=== PATIENT | male | born 1975 | race Caucasian/White ===

== ENCOUNTER 2017-04-20 20:04 | Emergency (ER) | payer BC ==
--- NOTE | 2017-04-20 20:41 | ED ---
General Adult HPI - General Source: patient, RN notes reviewed Mode of arrival: wheelchair Limitations: no limitations <Vin Cuadra - Last Filed: 04/20/17 20:38> <Castillo Garcia - Last Filed: 04/20/17 23:51> - General Chief complaint: Chest Pain Stated complaint: Chest Pain Time Seen by Provider: 04/20/17 20:05 - History of Present Illness Initial comments: This is a 42-year-old male who presents emergency Department complaining of shortness of breath. Patient states the shortness of breath has been ongoing for a few weeks now but he states is not that bad. 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 Patient denies any chest pain or palpitations. Patient's heart rate is currently 125 minutes as I talked to him but he does not have a history of any fast heart rate that he knows of. Patient denies any recent fever or chills he states he's had a cough for as long she's been on lisinopril. Patient denies any recent trips or travel. Patient denies any calf tenderness or leg swelling. Patient denies any headache. Patient denies any dizziness. Patient states he was lightheaded just prior to falling down but is no longer lightheaded. (Vin Cuadra) - Related Data Allergies Allergy/AdvReac Type Severity Reaction Status Date / Time lisinopril AdvReac Cough Verified 04/20/17 21:07 Review of Systems ROS Other: All systems not noted in ROS Statement are negative. <Vin Cuadra - Last Filed: 04/20/17 20:38> ROS Other: All systems not noted in ROS Statement are negative. <Castillo Garcia - Last Filed: 04/20/17 23:51> ROS Statement: Those systems with pertinent positive or pertinent negative responses have been documented in the HPI. Past Medical History Past Medical History: Hypertension History of Any Multi-Drug Resistant Organisms: None Reported Past Surgical History: Appendectomy, Cholecystectomy Past Psychological History: No Psychological Hx Reported Smoking Status: Never smoker Past Alcohol Use History: None Reported Past Drug Use History: None Reported <Vin Cuadra - Last Filed: 04/20/17 20:38> General Exam Limitations: no limitations <Vin Cuadra - Last Filed: 04/20/17 20:38> <Castillo Garcia - Last Filed: 04/20/17 23:51> - General Exam Comments Initial Comments: GENERAL: Patient is well-developed and well-nourished. Patient is nontoxic and well- hydrated and is in no acute distress. ENT: Neck is soft and supple. No significant lymphadenopathy is noted. Oropharynx is clear. Moist mucous membranes. Neck has full range of motion without eliciting any pain. EYES: The sclera were anicteric and conjunctiva were pink and moist. Extraocular movements were intact and pupils were equal round and reactive to light. Eyelids were unremarkable. PULMONARY: Unlabored respirations. Good breath sounds bilaterally. No audible rales rhonchi or wheezing was noted. CARDIOVASCULAR: Patient's heart is tachycardic at 120 beats a minute ABDOMEN: Soft and nontender with normal bowel sounds. No palpable organomegaly was noted. There is no palpable pulsatile mass. SKIN: Skin is clear with no lesions or rashes and otherwise unremarkable. NEUROLOGIC: Patient is alert and oriented x3. Cranial nerves II through XII are grossly intact. Motor and sensory are also intact. Normal speech, volume and content. Symmetrical smile. MUSCULOSKELETAL: Normal extremities with adequate strength and full range of motion. No lower extremity swelling or edema. No calf tenderness. LYMPHATICS: No significant lymphadenopathy is noted PSYCHIATRIC: Normal psychiatric evaluation. Normal interpersonal interactions appears functionally intact in deals appropriately with others. No signs of depression. No signs of anxiety. (Vin Cuadra) EKG Findings - EKG Comments: EKG Findings:: EKG shows sinus tachycardia with a ventricular rate 102, IN of 194, QRS duration 68, QTC 404, no ST segment elevation or depression <Castillo Garcia - Last Filed: 04/20/17 23:51> Medical Decision Making <Vin Cuadra - Last Filed: 04/20/17 20:38> - Lab Data Result diagrams: 04/20/17 20:27 04/20/17 20:27 <Castillo Garcia - Last Filed: 04/20/17 23:51> - Medical Decision Making EKG shows sinus tachycardia at 102 bpm IN interval 194 Shalonda is 60 QT interval 310 QTC is 404. Patient's EKG shows no ST segment elevation or depression or T wave abnormalities are noted (Vin Cuadra) I reevaluate this patient after sign out at approximately 10 PM. He has no complaints at the time my evaluation. He is tachycardic around 110. IV fluids are ordered. Chest x-ray shows left hilar fullness, CT angiography is recommended. This is obtained. Negative for PE or any left hilar mass. Levaquin studies are reviewed and are unremarkable. Patient denies nausea vomiting or diarrhea. He states he did drink water today. Patient's heart rate significantly improves with IV hydration. Repeat in the 80s. Blood pressure remained stable. Patient is offered observation for telemetry and reevaluation the morning. He declines. I believe his symptoms are likely related to dehydration. He will continue to rehydrate at home. Patient will follow-up with his primary care physician. (Castillo Garcia) - Lab Data Lab Results 04/20/17 04/20/17 04/20/17 Range/Units 20:27 20:27 20:27 WBC 11.9 H (3.8-10.6) k/uL RBC 5.61 (4.30-5.90) m/uL Hgb 17.0 (13.0-17.5) gm/dL Hct 49.5 (39.0-53.0) % MCV 88.3 (80.0-100.0) fL MCH 30.3 (25.0-35.0) pg MCHC 34.3 (31.0-37.0) g/dL RDW 12.2 (11.5-15.5) % Plt Count 291 (150-450) k/uL Neutrophils % 83 % Lymphocytes % 9 % Monocytes % 5 % Eosinophils % 0 % Basophils % 0 % Neutrophils # 9.9 H (1.3-7.7) k/uL Lymphocytes # 1.1 (1.0-4.8) k/uL Monocytes # 0.6 (0-1.0) k/uL Eosinophils # 0.0 (0-0.7) k/uL Basophils # 0.0 (0-0.2) k/uL PT (9.0-12.0) sec INR (<1.2) APTT (22.0-30.0) sec D-Dimer (<0.60) mg/L FEU Sodium 138 (137-145) mmol/L Potassium 4.5 (3.5-5.1) mmol/L Chloride 98 (98-107) mmol/L Carbon Dioxide 27 (22-30) mmol/L Anion Gap 13 mmol/L BUN 17 (9-20) mg/dL Creatinine 1.20 (0.66-1.25) mg/dL Est GFR (MDRD) Af Amer >60 (>60 ml/min/1.73 sqM) Est GFR (MDRD) Non-Af >60 (>60 ml/min/1.73 sqM) Glucose 118 H (74-99) mg/dL Calcium 9.9 (8.4-10.2) mg/dL Magnesium 2.2 (1.6-2.3) mg/dL Total Bilirubin 0.7 (0.2-1.3) mg/dL AST 36 (17-59) U/L ALT 62 (21-72) U/L Alkaline Phosphatase 79 (38-126) U/L Total Creatine Kinase 148 (55-170) U/L CK-MB (CK-2) 1.5 (0.0-2.4) ng/mL CK-MB (CK-2) Rel Index 1.0 Troponin I <0.012 (0.000-0.034) ng/mL NT-Pro-B Natriuret Pep pg/mL Total Protein 7.6 (6.3-8.2) g/dL Albumin 4.8 (3.5-5.0) g/dL TSH 0.951 (0.465-4.680) mIU/L Free T4 1.12 (0.78-2.19) ng/dL Urine Opiates Screen (NotDetected) Ur Oxycodone Screen (NotDetected) Urine Methadone Screen (NotDetected) Ur Propoxyphene Screen (NotDetected) Ur Barbiturates Screen (NotDetected) U Tricyclic Antidepress (NotDetected) Ur Phencyclidine Scrn (NotDetected) Ur Amphetamines Screen (NotDetected) U Methamphetamines Scrn (NotDetected) U Benzodiazepines Scrn (NotDetected) Urine Cocaine Screen (NotDetected) U Marijuana (THC) Screen (NotDetected) 04/20/17 04/20/17 04/20/17 Range/Units 20:27 20:27 20:54 WBC (3.8-10.6) k/uL RBC (4.30-5.90) m/uL Hgb (13.0-17.5) gm/dL Hct (39.0-53.0) % MCV (80.0-100.0) fL MCH (25.0-35.0) pg MCHC (31.0-37.0) g/dL RDW (11.5-15.5) % Plt Count (150-450) k/uL Neutrophils % % Lymphocytes % % Monocytes % % Eosinophils % % Basophils % % Neutrophils # (1.3-7.7) k/uL Lymphocytes # (1.0-4.8) k/uL Monocytes # (0-1.0) k/uL Eosinophils # (0-0.7) k/uL Basophils # (0-0.2) k/uL PT 10.8 (9.0-12.0) sec INR 1.1 (<1.2) APTT 22.9 (22.0-30.0) sec D-Dimer 0.28 (<0.60) mg/L FEU Sodium (137-145) mmol/L Potassium (3.5-5.1) mmol/L Chloride (98-107) mmol/L Carbon Dioxide (22-30) mmol/L Anion Gap mmol/L BUN (9-20) mg/dL Creatinine (0.66-1.25) mg/dL Est GFR (MDRD) Af Amer (>60 ml/min/1.73 sqM) Est GFR (MDRD) Non-Af (>60 ml/min/1.73 sqM) Glucose (74-99) mg/dL Calcium (8.4-10.2) mg/dL Magnesium (1.6-2.3) mg/dL Total Bilirubin (0.2-1.3) mg/dL AST (17-59) U/L ALT (21-72) U/L Alkaline Phosphatase (38-126) U/L Total Creatine Kinase (55-170) U/L CK-MB (CK-2) (0.0-2.4) ng/mL CK-MB (CK-2) Rel Index Troponin I (0.000-0.034) ng/mL NT-Pro-B Natriuret Pep <11 pg/mL Total Protein (6.3-8.2) g/dL Albumin (3.5-5.0) g/dL TSH (0.465-4.680) mIU/L Free T4 (0.78-2.19) ng/dL Urine Opiates Screen Not Detected (NotDetected) Ur Oxycodone Screen Not Detected (NotDetected) Urine Methadone Screen Not Detected (NotDetected) Ur Propoxyphene Screen Not Detected (NotDetected) Ur Barbiturates Screen Not Detected (NotDetected) U Tricyclic Antidepress Not Detected (NotDetected) Ur Phencyclidine Scrn Not Detected (NotDetected) Ur Amphetamines Screen Not Detected (NotDetected) U Methamphetamines Scrn Not Detected (NotDetected) U Benzodiazepines Scrn Not Detected (NotDetected) Urine Cocaine Screen Not Detected (NotDetected) U Marijuana (THC) Screen Not Detected (NotDetected) Disposition <Vin Cuadra - Last Filed: 04/20/17 20:38> Time of Disposition: 23:51 <Castillo Garcia - Last Filed: 04/20/17 23:51> Clinical Impression: Dehydration, Syncope Disposition: HOME SELF-CARE Condition: Good Instructions: Dehydration (ED), Syncope (ED) Referrals: Candelario Chapa DO [Primary Care Provider] - 1-2 days
[2017-04-20 20:56] LABS: Basophils % (A) 0 %; CH 31.1; CHCM 35.3; Eosinophils % (A) 0 %; HCT 49.5 % (39.0-53.0); HDW 2.42; Luc # (Auto) 0.22; Luc % (Auto) 2; Lymphocytes # (A) 1.1 k/uL (1.0-4.8); Lymphocytes % (A) 9 %; MCH 30.3 pg (25.0-35.0); MCHC 34.3 g/dL (31.0-37.0); MCV 88.3 fL (80.0-100.0); Mean Platelet Volume 7.7; Monocytes # (A) 0.6 k/uL (0-1.0); Monocytes % (A) 5 %; Neutrophils # (A) 9.9 k/uL (1.3-7.7); Neutrophils % (A) 83 %; RBC 5.61 m/uL (4.30-5.90); RDW 12.2 % (11.5-15.5); WBC 11.9 k/uL (3.8-10.6); WBC (Perox) 12.03
[2017-04-20 21:00] VITALS: RESP 18
[2017-04-20 21:07] LABS: ALT 62 U/L (21-72); AST 36 U/L (17-59); Alkaline Phosphatase 79 U/L (38-126); Anion Gap 13 mmol/L; Blood Urea Nitrogen 17 mg/dL (9-20); Calcium 9.9 mg/dL (8.4-10.2); Carbon Dioxide 27 mmol/L (22-30); Chloride 98 mmol/L (98-107); Glucose 118 mg/dL (74-99); Magnesium 2.2 mg/dL (1.6-2.3); Non-African American GFR(MDRD) >60 (>60 ml/min/1.73 sqM); Potassium 4.5 mmol/L (3.5-5.1); Sodium 138 mmol/L (137-145); Total Bilirubin 0.7 mg/dL (0.2-1.3); Total Protein 7.6 g/dL (6.3-8.2)
[2017-04-20 21:19] LABS: Creatine Kinase 148 U/L (55-170)
[2017-04-20 21:32] LABS: Creatine Kinase MB 1.5 ng/mL (0.0-2.4); Troponin I <0.012 ng/mL (0.000-0.034)
[2017-04-20] MEDS ORDERED: SODIUM CHLORIDE 0.9% 1,000 ML IV ONE (21:36)
--- NOTE | 2017-04-20 21:43 | XR ---
EXAMINATION TYPE: XR chest 2V DATE OF EXAM: 04/20/2017 COMPARISON: NONE HISTORY: Dyspnea TECHNIQUE: Frontal and lateral views of the chest are obtained. FINDINGS: There is prominence of the left hilum. This could represent summation shadows of overlying structures, but would suggest chest CTA characterization. Lungs are clear bilaterally. Pleural spaces are negative. Cardiac silhouette is normal. Remainder of the mediastinal silhouette is normal. Bones and soft tissu es are unremarkable. IMPRESSION: 1. CHEST CTA SUGGESTED TO CHARACTERIZE THE LEFT HILAR FULLNESS. 2. No acute pulmonary or pleural process.
[2017-04-20] MEDS ORDERED: RX INFO: IV CONTRAST WAS GIVEN 1 EACH MISC MISCELLANE PRN (21:45)
[2017-04-20] MEDS ORDERED: SODIUM CHLORIDE 0.9% 1,000 ML IV SCH (21:45)
[2017-04-20 21:49] LABS: INR 1.1 (<1.2)
[2017-04-20 21:56] LABS: Partial Thromboplastin Time 22.9 sec (22.0-30.0); Prothrombin Time 10.8 sec (9.0-12.0)
--- NOTE | 2017-04-20 23:11 | CT ---
EXAMINATION TYPE: CT angio chest DATE OF EXAM: 04/20/2017 10:59 PM COMPARISON: NONE HISTORY: Chest tightness and bilateral hand numbness. CT DLP: 580.00 mGycm Automated exposure control for dose reduction was used. CONTRAST: CTA scan of the thorax is performed with IV Contrast, patient injected with 92 mL of Omnipaque 350, p ulmonary embolism protocol. There are 3-D post processed images.. FINDINGS: The lungs are clear of consolidation. There is no evidence of a pulmonary mass. There is no pleural effusion. There is no pericardial effusion. There is coarse interstitial markings at the lung bases. There are no hilar masses. There is no mediastinal adenopathy. Thoracic aorta is intact. I see no filling defects in the pulmonary arteries. The bony thorax is intact. IMPRESSION: NEGATIVE CT ANGIOGRAM OF THE CHEST. NO EVIDENCE OF PULMONARY EMBOLISM.
[2017-04-20 23:28] VITALS: TEMP 99.4
[2017-04-20 23:35] VITALS: BP 152/95; PULSE 89
== END 2017-04-21 00:14 | disposition home or self-care (01) ==
LOC: EC 20:04
DX: E86.0 Dehydration (principal); R55 Syncope and collapse; R00.0 Tachycardia, unspecified; Z88.8 Allergy status to other drugs, medicaments and biological substances; Z79.899 Other long term (current) drug therapy
CPT/HCPCS: 96360 ×2; 99285 ×2; 36415; 93005; 85379; 84439; 83880; 80053; 82550; 82553; 83735; 84443; 84484; 85025; 85610; 85730; 80306; 71020; 71275; Q9967

== ENCOUNTER 2020-11-13 13:16 | Emergency (ER) | payer BC ==
[2020-11-13 13:21] VITALS: BP 133/88; PULSE 88; RESP 18; TEMP 97.6
[2020-11-13] MEDS ORDERED: KETOROLAC 15 MG/ML 1 ML VIAL IVP STA (13:32)
[2020-11-13] MEDS ORDERED: SODIUM CHLORIDE 0.9% 1,000 ML IV STA (13:32)
[2020-11-13] MEDS ORDERED: ONDANSETRON 4 MG/2 ML VIAL IVP STA (13:33)
--- NOTE | 2020-11-13 13:42 | ED ---
General Adult HPI - General Chief complaint: Abdominal Pain Stated complaint: Kidney pain Time Seen by Provider: 11/13/20 13:23 Source: patient Mode of arrival: ambulatory Limitations: no limitations - History of Present Illness Initial comments: Patient is a 45-year-old male with history of hypertension, presenting to the emergency department with complaints of an abnormal computed tomography scan. Patient states over the past week he has been having right flank pain and thought he was having a kidney stone. He states he's had this in the past and the pain feels similar. His pain has been intermittent but does get very severe, today has been ranging from a 7-9/10. His doctor ordered him a computed tomography scan today which she had done at [facility] and the doctor called him back stating there was some sort of mass around his kidney and that he needed to go in to see a urologist. Patient decided to come here into the ER for evaluation. He states the pain has been continuous for about one week. He's had some nausea no vomiting. He denies any fevers but does have some sweats and chills. He admits to history of appendectomy, cholecystectomy, no other abdominal surgeries. He denies any chest pain or shortness of breath. He has no further complaints at this time. Arrival to the ER, his vital signs are stable. - Related Data Home Medications Medication Instructions Recorded Confirmed amLODIPine [Norvasc] 10 mg PO DAILY 04/20/17 11/13/20 hydroCHLOROthiazide [Hydrodiuril] 25 mg PO DAILY 04/20/17 11/13/20 Atorvastatin [Lipitor] 20 mg PO DAILY 11/13/20 11/13/20 Irbesartan [Avapro] 300 mg PO DAILY 11/13/20 11/13/20 Multivitamin [Multivitamins Adult 2 tab PO DAILY 11/13/20 11/13/20 Gummies] Previous Rx's Medication Instructions Recorded Ketorolac [Toradol] 10 mg PO Q8HR #10 tab 11/13/20 Ondansetron Odt [Zofran Odt] 4 mg PO Q8HR PRN #10 tab 11/13/20 Tamsulosin [Flomax] 0.4 mg PO DAILY #7 cap 11/13/20 Allergies Allergy/AdvReac Type Severity Reaction Status Date / Time lisinopril AdvReac Cough Verified 11/13/20 14:09 Review of Systems ROS Statement: Those systems with pertinent positive or pertinent negative responses have been documented in the HPI. ROS Other: All systems not noted in ROS Statement are negative. Past Medical History Past Medical History: Hypertension History of Any Multi-Drug Resistant Organisms: None Reported Past Surgical History: Appendectomy, Cholecystectomy Past Psychological History: No Psychological Hx Reported Smoking Status: Never smoker Past Alcohol Use History: None Reported Past Drug Use History: None Reported General Exam - General Exam Comments Initial Comments: GENERAL: Patient is well-developed and well-nourished. Patient is nontoxic and in mild distress. HEAD: Atraumatic, normocephalic. EYES: Pupils equal round and reactive to light, extraocular movements intact, sclera anicteric, conjunctiva are normal. Eyelids were unremarkable. ENT: TMs normal, nares patent, oropharynx clear without exudates. Moist mucous membranes. NECK: Normal range of motion, supple without lymphadenopathy or JVD. LUNGS: Unlabored respirations. Breath sounds clear to auscultation bilaterally and equal. No wheezes rales or rhonchi. HEART: Regular rate and rhythm without murmurs, rubs or gallops. ABDOMEN: Soft, discomfort with palpation of the right side of the abdomen, positive right flank pain. normoactive bowel sounds. No guarding, no rebound. No masses appreciated. : Deferred MUSCULOSKELETAL: Normal extremities with adequate strength and normal range of motion, no pitting or edema. No clubbing or cyanosis. NEUROLOGICAL: Patient is alert and oriented x 3. Motor and sensory are also intact. Cranial nerves II through XII grossly intact. Symmetrical smile. Normal speech, normal gait. PSYCH: Normal mood, normal affect. SKIN: Warm, Dry, normal turgor, no rashes or lesions noted. Limitations: no limitations Course Vital Signs 11/13/20 13:17 Temperature 97.6 F Pulse Rate 88 Respiratory 18 Rate Blood Pressure 133/88 O2 Sat by Pulse 99 Oximetry Medical Decision Making - Medical Decision Making Patient is a 45-year-old male with history of hypertension, presenting after an abnormal computed tomography scan performed at [facility] today. He's been having right flank pain for 1 week, had an outpatient computed tomography scan done today at [facility]. We did obtain the results of that computed tomography scan which shows mild right-sided obstructive uropathy with distention of the right pelvicalyceal system and proximal right ureter, no visible calcifications either kidney or right ureter. Patient's lab work is unremarkable, normal white count, normal kidney function, urine shows hematuria but no signs of infection. Patient was given fluids and Toradol and reports a scant improvement in his pain. He states his pain is a 2/10. I discussed these findings with the patient. Patient will follow up with urology in the next few days. I will send him home with pain control, Zofran and some Flomax. Recommend increasing his fluid intake. Return parameters were discussed with the patient and he verbalized understanding. Case discussed with Dr. Rodriges. - Lab Data Result diagrams: 11/13/20 13:55 11/13/20 13:55 Lab Results 11/13/20 11/13/20 11/13/20 Range/Units 13:55 13:55 13:55 WBC 12.8 H (3.8-10.6) k/uL RBC 5.41 (4.30-5.90) m/uL Hgb 16.5 (13.0-17.5) gm/dL Hct 46.3 (39.0-53.0) % MCV 85.6 (80.0-100.0) fL MCH 30.5 (25.0-35.0) pg MCHC 35.7 (31.0-37.0) g/dL RDW 12.0 (11.5-15.5) % Plt Count 300 (150-450) k/uL MPV 8.1 Neutrophils % 90 % Lymphocytes % 5 % Monocytes % 3 % Eosinophils % 1 % Basophils % 0 % Neutrophils # 11.5 H (1.3-7.7) k/uL Lymphocytes # 0.6 L (1.0-4.8) k/uL Monocytes # 0.4 (0-1.0) k/uL Eosinophils # 0.1 (0-0.7) k/uL Basophils # 0.0 (0-0.2) k/uL Sodium 135 L (137-145) mmol/L Potassium 4.5 (3.5-5.1) mmol/L Chloride 97 L (98-107) mmol/L Carbon Dioxide 28 (22-30) mmol/L Anion Gap 10 mmol/L BUN 18 (9-20) mg/dL Creatinine 1.06 (0.66-1.25) mg/dL Est GFR (CKD-EPI)AfAm >90 (>60 ml/min/1.73 sqM) Est GFR (CKD-EPI)NonAf 85 (>60 ml/min/1.73 sqM) Glucose 119 H (74-99) mg/dL Plasma Lactic Acid Jesse (0.7-2.0) mmol/L Calcium 9.7 (8.4-10.2) mg/dL Total Bilirubin 0.8 (0.2-1.3) mg/dL AST 33 (17-59) U/L ALT 41 (4-49) U/L Alkaline Phosphatase 82 (38-126) U/L Total Protein 7.6 (6.3-8.2) g/dL Albumin 4.8 (3.5-5.0) g/dL Urine Color Light Yellow Urine Appearance Clear (Clear) Urine pH 7.0 (5.0-8.0) Ur Specific [place] 1.018 (1.001-1.035) Urine Protein Negative (Negative) Urine Glucose (UA) Negative (Negative) Urine Ketones Negative (Negative) Urine Blood Moderate H (Negative) Urine Nitrite Negative (Negative) Urine Bilirubin Negative (Negative) Urine Urobilinogen <2.0 (<2.0) mg/dL Ur Leukocyte Esterase Negative (Negative) Urine RBC 68 H (0-5) /hpf Urine WBC 2 (0-5) /hpf 11/13/20 Range/Units 13:55 WBC (3.8-10.6) k/uL RBC (4.30-5.90) m/uL Hgb (13.0-17.5) gm/dL Hct (39.0-53.0) % MCV (80.0-100.0) fL MCH (25.0-35.0) pg MCHC (31.0-37.0) g/dL RDW (11.5-15.5) % Plt Count (150-450) k/uL MPV Neutrophils % % Lymphocytes % % Monocytes % % Eosinophils % % Basophils % % Neutrophils # (1.3-7.7) k/uL Lymphocytes # (1.0-4.8) k/uL Monocytes # (0-1.0) k/uL Eosinophils # (0-0.7) k/uL Basophils # (0-0.2) k/uL Sodium (137-145) mmol/L Potassium (3.5-5.1) mmol/L Chloride (98-107) mmol/L Carbon Dioxide (22-30) mmol/L Anion Gap mmol/L BUN (9-20) mg/dL Creatinine (0.66-1.25) mg/dL Est GFR (CKD-EPI)AfAm (>60 ml/min/1.73 sqM) Est GFR (CKD-EPI)NonAf (>60 ml/min/1.73 sqM) Glucose (74-99) mg/dL Plasma Lactic Acid Jesse 2.0 (0.7-2.0) mmol/L Calcium (8.4-10.2) mg/dL Total Bilirubin (0.2-1.3) mg/dL AST (17-59) U/L ALT (4-49) U/L Alkaline Phosphatase (38-126) U/L Total Protein (6.3-8.2) g/dL Albumin (3.5-5.0) g/dL Urine Color Urine Appearance (Clear) Urine pH (5.0-8.0) Ur Specific [place] (1.001-1.035) Urine Protein (Negative) Urine Glucose (UA) (Negative) Urine Ketones (Negative) Urine Blood (Negative) Urine Nitrite (Negative) Urine Bilirubin (Negative) Urine Urobilinogen (<2.0) mg/dL Ur Leukocyte Esterase (Negative) Urine RBC (0-5) /hpf Urine WBC (0-5) /hpf Disposition Clinical Impression: Right flank pain, Right ureteral calculus Disposition: HOME SELF-CARE Condition: Stable Instructions (If sedation given, give patient instructions): Kidney Stones (ED) Additional Instructions: Please return to the Emergency Department if symptoms worsen or any other concerns. May take Toradol for severe pain, Zofran for any additional nausea or vomiting. Take Flomax daily. Increase your fluid intake. Follow up with urology as discussed. Prescriptions: Tamsulosin [Flomax] 0.4 mg PO DAILY #7 cap Ketorolac [Toradol] 10 mg PO Q8HR #10 tab Ondansetron Odt [Zofran Odt] 4 mg PO Q8HR PRN #10 tab PRN Reason: Nausea Is patient prescribed a controlled substance at d/c from ED?: No Referrals: Candelario Chapa DO [Primary Care Provider] - 1-2 days Mickey Gaines MD [STAFF PHYSICIAN] - 1-2 days Time of Disposition: 15:04
[2020-11-13 14:25] LABS: Basophils % (A) 0 %; Eosinophils # (A) 0.1 k/uL (0-0.7); Eosinophils % (A) 1 %; HCT 46.3 % (39.0-53.0); HGB 16.5 gm/dL (13.0-17.5); Lymphocytes # (A) 0.6 k/uL (1.0-4.8); Lymphocytes % (A) 5 %; MCH 30.5 pg (25.0-35.0); MCHC 35.7 g/dL (31.0-37.0); MCV 85.6 fL (80.0-100.0); Mean Platelet Volume 8.1; Monocytes # (A) 0.4 k/uL (0-1.0); Monocytes % (A) 3 %; Neutrophils # (A) 11.5 k/uL (1.3-7.7); Neutrophils % (A) 90 %; Platelet Count 300 k/uL (150-450); RBC 5.41 m/uL (4.30-5.90); WBC 12.8 k/uL (3.8-10.6)
[2020-11-13 14:39] LABS: Appearance,Urine Clear (Clear); Bilirubin,Urine Negative (Negative); Blood,Urine Moderate (Negative); Color,Urine Light Yellow; Glucose,Urine (UA) Negative (Negative); Ketones,Urine Negative (Negative); Leukocyte Esterase,Urine Negative (Negative); Nitrite,Urine Negative (Negative); Protein,Urine Negative (Negative); RBC,Urine 68 /hpf (0-5); Specific Gravity,Urine 1.018 (1.001-1.035); Urobilinogen,Urine <2.0 mg/dL (<2.0); WBC,Urine 2 /hpf (0-5)
[2020-11-13 14:46] LABS: ALT 41 U/L (4-49); AST 33 U/L (17-59); African American GFR (CKD) >90 (>60 ml/min/1.73 sqM); Albumin 4.8 g/dL (3.5-5.0); Alkaline Phosphatase 82 U/L (38-126); Anion Gap 10 mmol/L; Blood Urea Nitrogen 18 mg/dL (9-20); Calcium 9.7 mg/dL (8.4-10.2); Carbon Dioxide 28 mmol/L (22-30); Chloride 97 mmol/L (98-107); Glucose 119 mg/dL (74-99); Non-African American GFR(CKD) 85 (>60 ml/min/1.73 sqM); Potassium 4.5 mmol/L (3.5-5.1); Sodium 135 mmol/L (137-145); Total Bilirubin 0.8 mg/dL (0.2-1.3); Total Protein 7.6 g/dL (6.3-8.2)
== END 2020-11-13 15:20 | disposition home or self-care (01) ==
LOC: EC 13:16
DX: N20.1 Calculus of ureter (principal); I10 Essential (primary) hypertension; Z79.1 Long term (current) use of non-steroidal anti-inflammatories (NSAID); Z79.899 Other long term (current) drug therapy; Z88.8 Allergy status to other drugs, medicaments and biological substances; Z90.49 Acquired absence of other specified parts of digestive tract
CPT/HCPCS: 36415; 80053; 83605; 85025; 81001; 99284; 96374; 96375; 96361; J2405; J1885